=== PATIENT | female | born 1965 | race Caucasian/White ===

== ENCOUNTER 2017-03-07 23:12 | Emergency (ER) | payer MEDICAID ==
[2017-03-07 23:18] VITALS: BP 158/93
== END 2017-03-08 01:21 | disposition left against medical advice (07) ==
LOC: ED 23:12
DX: Z53.21 Procedure and treatment not carried out due to patient leaving prior to being seen by health care provider (principal)

== ENCOUNTER 2017-03-30 15:49 | Emergency (ER) | payer MEDICAID ==
[~2017-03-30] VITALS: Ht 157.5 cm; Wt 104.0 kg
[2017-03-30 16:01] VITALS: BP 147/88
== END 2017-03-30 18:14 | disposition home or self-care (01) ==
LOC: ED 15:49
DX: J02.9 Acute pharyngitis, unspecified (principal); M79.1 Myalgia
CPT/HCPCS: J0690

== ENCOUNTER 2017-10-30 16:08 | Emergency (ER) | payer MEDICAID ==
[2017-10-30 16:11] VITALS: BP 131/100
== END 2017-10-30 17:37 | disposition home or self-care (01) ==
LOC: ED 16:08
DX: J02.9 Acute pharyngitis, unspecified (principal)
CPT/HCPCS: J1100; J1885

== ENCOUNTER 2017-12-28 21:06 | Emergency (ER) | payer MEDICAID ==
[~2017-12-28] VITALS: Ht 157.5 cm; Wt 105.2 kg
[2017-12-28 21:18] VITALS: BP 144/78; Ht 157.5 cm; Wt 105.2 kg
== END 2017-12-28 23:14 | disposition home or self-care (01) ==
LOC: ED 21:06
DX: M25.512 Pain in left shoulder (principal); I10 Essential (primary) hypertension
CPT/HCPCS: Q0092

== ENCOUNTER 2019-03-15 11:57 | Emergency (ER) | payer MEDICAID ==
[~2019-03-15] VITALS: Ht 152.4 cm; Wt 97.1 kg
[2019-03-15 12:12] VITALS: Ht 152.4 cm; Wt 97.1 kg
[2019-03-15 13:04] LABS: CALCIUM 8.9 mg/dL (8.5-10.1); CARBON DIOXIDE 33.7 mmol/L (21-32); CHLORIDE SERUM 104 mmol/L (98-107); CREATININE SERUM 0.8 mg/dL (0.6-1.0); GFR1 > 60 mL/min; GLUCOSE SERUM 111 mg/dL (74-106); POTASSIUM SERUM 3.6 mmol/L (3.5-5.1); SODIUM SERUM 144 mmol/L (136-145)
[2019-03-15 13:06] LABS: BASOPHIL % 0.2 % (0-2); PLATELET COUNT 309 x10^3mcL (130-400)
[2019-03-15 13:08] LABS: ALBUMIN 3.4 g/dL (3.4-5.0); ALKALINE PHOSPHATASE 85 U/L (46-116); ALT/SGPT 39 U/L (14-59); AST/SGOT 24 U/L (15-37); BILIRUBIN TOTAL 0.2 mg/dL (0.20-1.00); LIPASE 141 IU/L (73-393); TOTAL PROTEIN, SERUM 7.4 g/dL (6.4-8.2)
[2019-03-15 16:00] LABS: UA SPECIFIC GRAVITY 1.025 (1.005-1.035); microscopic required? YES; urine erythrocyte TRACE (NEGATIVE)
[2019-03-15 16:09] VITALS: BP 115/49
== END 2019-03-15 16:09 | disposition home or self-care (01) ==
LOC: ED 11:57
PROVIDERS: Emergency Medicine
DX: A08.4 Viral intestinal infection, unspecified (principal); N39.0 Urinary tract infection, site not specified
CPT/HCPCS: 36415